=== PATIENT | female | born 1985 | race Caucasian/White ===

== ENCOUNTER → 2017-11-03 08:55 | Outpatient (CLI) | payer BC, SELFPAY ==
--- NOTE | 2017-11-03 09:02 | CT_ITS ---
CT abdomen pelvis wo con CLINICAL INDICATION: Left flank pain ITS.REASON: LT RENAL COLIC ORDERING PHYSICIAN: Prem Lopez MD PATIENT AGE: 32 years COMPARISON: 05/16/2013 TECHNIQUE: Axial images obtained with sagittal and coronal reformats. All CT scans at the facility use one or more dose reduction, viz: automated exposure control; ma/kV adjustment per patient size (including targeted exams where dose is matched to indication; i.e. head); or iterative reconstruction technique. PROCEDURE: Oral Contrast: None IV Contrast: None . FINDINGS: The lung bases are clear. Mild diffuse fatty liver. Prior cholecystectomy. The the spleen, adrenal glands, and pancreas are unremarkable. No ductal dilatation. No obstructing renal or ureteral calculi. No obvious renal mass or perinephric fluid collection. No evidence of appendicitis, diverticulitis, or intestinal obstruction or free air No pelvic mass abnormal fluid collection or focal inflammatory change. No acute bony anomalies. IMPRESSION: No acute abdominal or pelvic findings. No renal or ureteral calculi evident.
== END ==
PROVIDERS: Family Provider Family Medicine; PCP Family Medicine; Visit Provider Family Medicine
DX: N23 Unspecified renal colic (principal)
CPT/HCPCS: 74176

== ENCOUNTER → 2018-06-22 16:15 | Outpatient (CLI) | payer BC, SELFPAY ==
--- NOTE | 2018-06-22 16:25 | MR_ITS ---
MR head/brain wo con HISTORY: Chronic posttraumatic headache with blurred vision ITS.REASON: CHRONIC POST TRAUMATIC HEADACHE ORDERING PHYSICIAN: Prem Lopez MD PATIENT AGE: 32 years Comparison: none TECHNIQUE: Standard multiplanar multiecho sequences are performed without contrast. FINDINGS: No midline shift, mass effect, intracranial hemorrhage, or hydrocephalus is evident. There are encephalomalacia changes in the right frontal lobe. Postsurgical changes are present within the right frontal bone is well. No acute infarction. The cerebellopontine angles, cerebellum, and brainstem are unremarkable. The pituitary, optic chiasm, corpus callosum, and craniocervical junction have an unremarkable appearance. There is normal mcghee-white matter differentiation. IMPRESSION: 1. Encephalomalacia change in the right frontal lobe. 2. Otherwise negative MRI of the brain without contrast with no acute finding
== END ==
PROVIDERS: PCP Family Medicine; Visit Provider Family Medicine
DX: G44.329 Chronic post-traumatic headache, not intractable (principal); G93.89 Other specified disorders of brain
CPT/HCPCS: 70551

== ENCOUNTER → 2021-02-14 16:56 | Outpatient (CLI) | payer BC, SELFPAY ==
[2021-02-14 16:59] LABS: MANUAL DIFFERENTIAL MANUAL DIFFERENTIAL (MANUAL DIFF)
[2021-02-14 18:13] LABS: Basophils # 0.1 K/mm3 (0-0.2); Basophils % 0.6 % (0.1-2.0); Eosinophils # 0.3 K/mm3 (0.0-0.4); Eosinophils % 2.5 % (0.1-12.0); Hematocrit 39.5 % (37.0-47.0); Hemoglobin 13.7 g/dL (12.2-16.2); Lymphocytes # 3.9 K/mm3 (0.7-4.5); Lymphocytes % 29.8 % (10-50); Mean Corpuscular HGB Conc 34.6 g/dL (31.8-35.4); Mean Corpuscular Hemoglobin 29.9 pg (27.0-31.2); Mean Corpuscular Volume 86.4 fl (81-99); Mean Platelet Volume 8.2 fl (7.4-10.4); Monocytes # 0.9 K/mm3 (0.1-1.0); Monocytes % 6.6 % (1.7-9.3); Neutrophils # 7.8 K/mm3 (1.8-7.8); Neutrophils % 60.5 % (37.0-80.0); Platelet Count 373 K/mm3 (142-424); Red Blood Count 4.57 M/mm3 (4.20-5.40); Red Cell Distribution Width 12.9 % (11.5-17.5); White Blood Count 12.9 K/mm3 (4.8-10.8)
[2021-02-14 19:26] LABS: Eosinophils % 2 % (0-3); Lymphocytes % 31 % (10-50); Monocytes % 2 % (2-9); Neutrophils % 65 % (42-76); Nucleated Red Blood Cells 1; Platelet Estimate Normal; Total Cells Counted 100
[2021-02-14 19:34] LABS: Anion Gap 17.2 mEq/L (5-15); Blood Urea Nitrogen 10 mg/dl (7-17); Calcium 9.6 mg/dl (8.4-10.2); Carbon Dioxide 24 mmol/L (22.0-30.0); Chloride 102 mmol/L (98-107); Estimated Glomerular Filt Rate 115 ml/min (>60); GFR (African American) 139 ML/MIN (>60); Glucose 82 mg/dl (74-100); Potassium 4.2 mmoL/L (3.5-5.1); Sodium 139 mmol/L (136-145)
[2021-02-14 19:36] LABS: HCG Qualitative, Serum Negative (Negative)
== END ==
PROVIDERS: Visit Provider Nurse Practitioner Obstetrics & Gynecology
DX: Z01.812 Encounter for preprocedural laboratory examination (principal); R10.2 Pelvic and perineal pain; N94.10 Unspecified dyspareunia; N85.2 Hypertrophy of uterus; Z11.52 Encounter for screening for COVID-19
CPT/HCPCS: 36415; 80048; 84703; 85007; 85014; 85018; 85048; 85049; U0003

== ENCOUNTER 2021-02-17 12:41 | Observation (INO) | payer BC, SELFPAY ==
[2021-02-12 13:27] VITALS: BMI 33.3
[2021-02-17] VITALS (21 sets, daily range): BP systolic 101–161; BP diastolic 61–85; PULSE 86–102; RESP 12–18; TEMP 36.6–43; O2SAT 93–99
--- NOTE | 2021-02-17 07:59 | P.PN_ITS ---
[facility] Anesthesia Checklist - Patient Identification Patient Identification: Arm Band - Structural Data Admitted From: Home Planned Operative Procedure/s: LAVH, Bilateral Salpingectomy Consent for Planned Operative Procedure(s) Verified: Yes Verified Documents: Surgical Consent, History and Physical - NPO Status Verified Time NPO: 00:00 - Additional verifications Anesthesia Reactions: No Hx Blood Transfusions: No Blood Transfusion Reaction: No - Airway Assessment C-Spine Mobility Assessed: Yes (mp2) TMJ Mobility Assessed: Yes Dentition: Good Dentition - Neurological Assessment Level of Consciousness: Awake, Alert - Anesthesia Plan Anesthesia Risk discussed: Yes Anesthesia Plan: Verified ASA Class: II Anesthesia Type: General [facility] History I have reviewed the patient's past medical history: Yes Medical History: Reports:: Anxiety, Depression, Hypertension, Kidney Stones, Migraine Denies:: Cancer, Diabetes Mellitus Type 1, Diabetes Mellitus Type 2, Internal Pacemaker, MRSA, Seizures *Have you ever received a pneumonia vaccine?: No *Have you received a flu vaccine this season?: No Other Medical History: Denies: Blood Transfusion Reaction Anesthesia experience/problems:: nac Laterality Cases: Bilateral: Other Other Surgeries: Yes: , Other. No: Pacemaker Amputation: No Fractures: No - *Social History Smoking Status: Never smoker Alcohol Intake: never Alcohol Intake Frequency:: other Substance Use Type: denies use *Occupational Status:: employed Housing: house Household Members: family *Travel in the last 8 weeks: None - Psychiatric History Pschychiatric History:: Reports:: Anxiety, Depression Family Hx:: No significant family history
--- NOTE | 2021-02-17 11:23 | HMH.OPNOTE ---
Date of procedure: 02/17/21 Pre-op Diagnosis:: Pelvic pain, dyspareunia, menorrhagia, dysmenorrhea Post-op Diagnosis:: Pelvic pain, dysmenorrhea, dyspareunia, menorrhagia, pelvic adhesions, endometriosis Procedure performed:: Laparoscopically assisted vaginal hysterectomy, bilateral salpingectomy, lysis of adhesions Surgeon:: Doron Chandler MD Need[employer] Supervisor(s):: Kerrie Gaming CAT OPERATOR:: Douglas Rolon Anesthesia: GETA Estimated blood loss (mL): 600 Clinical Note:: She is a 35-year-old 2 para 2 lady who complains of severe pain with her periods as well as pain with intercourse. She had an enlarged uterus and on examination her uterus was exquisitely tender. She has had a previous ablation. She had heavy periods still. After having discussed the risks and benefits we elected perform a laparoscopic-assisted vaginal hysterectomy and bilateral salpingectomy. Operative findings:: She had an anteverted bulky uterus. The anterior aspect of the uterus was adherent to the anterior abdominal wall with thick adhesions. Ovaries and tubes appeared normal. The appendix had some adhesions but was otherwise normal. There were a couple of small spots of endometriosis. They were about a millimeter in size. The upper abdomen appeared normal. Operative note:: She was taken to the operating room where general anesthesia was found be adequate. She was prepped and draped in normal sterile fashion in the semilithotomy position. A weighted speculum was placed in the vagina and the anterior lip of the cervix was grasped with a tenaculum. An acorn uterine manipulator was then placed within the cervical os. I then changed gloves. I injected 10 cc of 0.5% ropivacaine around the umbilicus and made a small incision within the umbilicus. I inserted a Veress needle into the abdominal cavity. The abdominal cavity was then insufflated with carbon dioxide gas to a pressure of 20 mmHg. I then inserted an 11 mm trocar under direct vision. I identified the inferior epigastric arteries on the left side, went lateral to these and injected through and through. I then made a small incision and inserted an 11 mm trocar under direct vision. A similar 11 mm trocar was placed on the right side. She had extensive adhesions of the uterus to the anterior abdominal wall and I took these down with harmonic scalpel. I then injected through and through and placed a small 5 mm trocar in the suprapubic area. This was done under direct vision. The left round ligament was then grasped and cut through with harmonic scalpel. This was followed by opening up the peritoneum anteriorly to the midline. I then grasped the tube on the left side and cut through this. This is followed by cutting through the left utero-ovarian ligament. I used Harmonic scalpel on the coagulation mode. I then took down the posterior aspect of the broad ligament to the level of the uterosacral ligament. I then skeletonized the uterine arteries on the left side and placed hemoclips on these. Using the harmonic scalpel on coagulation mode adjacent to the cervix I then took down these uterine arteries. I then further freed up the bladder anteriorly and laterally on the left side. I then turned my attention to the right side where I grasped the right round ligament. The right tube was adherent to the right pelvic sidewall and using harmonic scalpel I was able to free this up. I then cut through the right round ligament. I then took down the anterior peritoneum to the midline joining up with the other side. I further dissected the bladder off. The posterior aspect of the right broad ligament was then taken down with harmonic scalpel. I skeletonized the uterine arteries on the right side. I applied hemoclips to the uterine arteries and staying adjacent to the cervix on the right side I took down the uterine arteries with harmonic scalpel on coagulation mode. I further freed up the bladder. We then assured
--- NOTE | 2021-02-17 11:32 | HMH.HP ---
*Admission Date: 02/17/21 *Chief complaint: Dysmenorrhea, dyspareunia, menorrhagia, *History of present illness: She is a 35-year-old 2 para 2 lady who is had a previous ablation for bleeding problems she continued to have bleeding as well as painful periods and dyspareunia. She had 2 previous sections. She was exquisitely tender when I examined her in my office. After having discussed the risks and benefits we elected perform a laparoscopically assisted vaginal hysterectomy and bilateral salpingectomy. [facility] History I have reviewed the patient's past medical history: Yes Medical History: Reports:: Anxiety, Depression, Hypertension, Kidney Stones, Migraine Denies:: Cancer, Diabetes Mellitus Type 1, Diabetes Mellitus Type 2, Internal Pacemaker, MRSA, Seizures *Have you ever received a pneumonia vaccine?: No *Have you received a flu vaccine this season?: No Other Medical History: Denies: Blood Transfusion Reaction Anesthesia experience/problems:: nac Laterality Cases: Bilateral: Other Other Surgeries: Yes: No Previous Surgery, , Other. No: Pacemaker Amputation: No Fractures: No - *Social History Smoking Status: Never smoker Alcohol Intake: never Alcohol Intake Frequency:: other Substance Use Type: denies use *Occupational Status:: employed Housing: house Household Members: family *Travel in the last 8 weeks: None - Psychiatric History Pschychiatric History:: Reports:: Anxiety, Depression Family Hx:: No significant family history Review of Systems - Review of Systems Review of systems:: pertinent systems reviewed and negative unless documented below Meds Home Medications Medication Instructions Recorded Confirmed Type nadolol 80 mg tablet 80 mg PO QAM tab 08/05/17 02/17/21 History onabotulinumtoxinA 200 unit 200 unit IM ONCE 08/05/17 02/17/21 History solution for injection rizatriptan 10 mg disintegrating 10 mg PO ONCE 08/05/17 02/17/21 History tablet famotidine 20 mg tablet 20 mg PO DAILY tab 08/28/20 02/17/21 History fluoxetine 40 mg capsule 40 mg PO DAILY 08/28/20 02/17/21 History gabapentin 600 mg tablet 600 mg PO DAILY tab 08/28/20 02/17/21 History Dextroamphetamine/Amphetamine 10 mg PO DAILY 02/12/21 02/17/21 History [Adderall 10 mg Tablet] Gabapentin 600 mg PO DAILY 02/12/21 02/17/21 History Allergies Allergy/AdvReac Type Severity Reaction Status Date / Time cefaclor Allergy Intermediate I-HIVES Verified 02/17/21 07:33 Exam Vital signs and Labs for Last 24 Hours: Temp Pulse Resp BP Pulse Ox 98.5 F 88 18 126/77 96 02/17/21 07:35 02/17/21 07:35 02/17/21 07:35 02/17/21 07:35 02/17/21 07:35 - Constitutional no acute distress - *Routine HEENT Exam Head: Present: normocephalic Eye: Present: EOMI, PERRL ENT: Present: mucous membranes moist - *Routine Neck Exam Present: supple, full ROM - *Routine Respiratory Exam Absent: accessory muscle use (good air entry bilaterally), wheezes, crackles - *Routine Cardiovascular Exam Present: RRR. Absent: murmur - *Routine Abdominal Exam Present: soft, normoactive bowel sounds. Absent: tenderness, rebound, guarding, mass - *Routine Rectal Exam Rectal:: deferred - *Routine Genitalia Exam Genitalia:: deferred - *Routine Extremities Exam Present: full ROM. Absent: cyanosis, edema, calf tenderness - *Routine Skin Exam Present: intact (good color) - *Routine Neurological Exam Present: alert, oriented X3 - Routine Psychiatric Exam Present: normal affect - Detailed Rectal Exam Patient deferred: visual exam, digital exam - Detailed Exam Patient deferred: external exam, groin exam, perineal exam Assessment and Plan (1) Dysmenorrhea Status: Acute Category: Medical Code(s): N94.6 - Dysmenorrhea, unspecified (2) Dyspareunia Status: Acute Category: Medical (3) Pelvic peritoneal adhesions, female Status: Acute Category: Medical Code(s): N73.6 - Female pelvic pe
--- NOTE | 2021-02-17 11:38 | P.PN_ITS ---
[facility] Anesthesia Record Part I Intake, IV Amount: 2,000 Estimated blood loss (mL): 600 Urine output (mL): 30 Blood Pressure: 137/81 SaO2: 93 Pulse Rate: 93 Respiratory Rate: 12 Temperature: 98.4 F Patient is:: Awake, Stable Stable to PACU at:: 11:35
[2021-02-17 13:50] LABS: Microscopic,Cath URINE MICROSCOPIC (MICROSCOPIC)
[2021-02-17 13:58] LABS: Appearance,Urine/Cath SL CLOUDY (Clear); Bilirubin,Cath Negative (Negative); Blood, Urine/Cath TRACE-I (Negative); Color,Urine/Cath YELLOW (Yellow); Glucose,Urine/Cath (UA) Negative (Negative); Ketones,Urine/Cath Negative (Negative); Leukocyte Esterase,Cath Negative (Negative); Nitrate,Cath Negative (Negative); Protein,Urine/Cath 1+ (Negative); Specific Gravity, Urine/Cath >= 1.030 (1.005-1.030)
--- NOTE | 2021-02-17 16:40 | PC.NURSE ---
PT HAS RESTED INTERMITTENTLY THIS SHIFT, NO ACUTE CHANGES SINCE ADMISSION ASSESSMENT. PAIN WELL CONTROLLED AT THIS TIME. IV PATENT, LUNGS CLEAR. LAP SITES X 4 C/D/I. ABD SOFT AND MODERATELY TENDER. BOWEL SOUNDS HYPOACTIVE.CLEAR YELLOW URINE NOTED FROM NEUMANN. TOLERATING REGULAR DIET. SCUDDS ON BILATERALLY. CALL LIGHT WITHIN REACH. WILL CONTINUE TO MONITOR
[2021-02-17 17:05] LABS: Hematocrit 35.8 % (37.0-47.0); Hemoglobin 11.8 g/dL (12.2-16.2)
--- NOTE | 2021-02-17 21:28 | PC.NURSE ---
late entry: Assisted patient to bathroom and removed taylor catheter. Pt tolerated well and was instructed to use call light when ready to ambulate back to bed. I responded to pt call light and found pt sitting on the toilet and c/o dizziness and feeling like blacking out . Pt appeared pallor and was diaphoretic. Called for assistance and pt was assisted back to bed with RNx2. BP was 111/58 hr 90 99%o2. Glucose 118. Pt recovered quickly and asked for something to eat and drink. Will continue to monitor.
[2021-02-18] VITALS (8 sets, daily range): BP systolic 110–134; BP diastolic 57–79; PULSE 85–93; RESP 16–18; TEMP 36.6–37.2; O2SAT 94–99
--- NOTE | 2021-02-18 01:17 | PC.NURSE ---
LATE ENTRY: 2044 INCENTIVE SPIROMETER GIVEN AND EXPLAINED TO PT. PT V/U. 1200 GOAL SET AND OBTAINED.
--- NOTE | 2021-02-18 04:02 | PC.NURSE ---
PT SLEEPING COMFORTABLY. NO DISTRESS NOTED. PT HAS BEEN AWAKE MAJORITY OF THE SHIFT WITH C/O GAS AND VAGINAL PRESSURE. MEDICATED PER EMAR. LAP SITES ARE CDI X4. VSS. PT HAS BEEN AMBULATING IN ROOM INDEPENDENTLY THIS SHIFT. WILL CONTINUE TO MONITOR.
[2021-02-18 04:28] LABS: POC Glucose,Bedside 118 (70-110)
[2021-02-18 06:15] LABS: Basophils # 0.1 K/mm3 (0-0.2); Basophils % 0.5 % (0.1-2.0); Eosinophils # 0.1 K/mm3 (0.0-0.4); Eosinophils % 0.6 % (0.1-12.0); Hematocrit 33.6 % (37.0-47.0); Hemoglobin 11.2 g/dL (12.2-16.2); Lymphocytes # 1.7 K/mm3 (0.7-4.5); Lymphocytes % 9.5 % (10-50); Mean Corpuscular HGB Conc 33.2 g/dL (31.8-35.4); Mean Corpuscular Hemoglobin 30.3 pg (27.0-31.2); Mean Corpuscular Volume 91.3 fl (81-99); Monocytes # 1.2 K/mm3 (0.1-1.0); Monocytes % 6.4 % (1.7-9.3); Neutrophils % 82.9 % (37.0-80.0); Platelet Count 316 K/mm3 (142-424); Red Blood Count 3.68 M/mm3 (4.20-5.40); Red Cell Distribution Width 13.3 % (11.5-17.5); White Blood Count 18.1 K/mm3 (4.8-10.8)
[2021-02-18 06:18] LABS: MANUAL DIFFERENTIAL MANUAL DIFFERENTIAL (MANUAL DIFF)
[2021-02-18 06:26] LABS: Chloride 105 mmol/L (98-107)
[2021-02-18 06:27] LABS: Potassium 4.2 mmoL/L (3.5-5.1); Sodium 137 mmol/L (136-145)
[2021-02-18 06:29] LABS: Blood Urea Nitrogen 7 mg/dl (7-17); Creatinine Clearance Estimated 229 mL/min (50-200); Estimated Glomerular Filt Rate 142 ml/min (>60); GFR (African American) 172 ML/MIN (>60)
[2021-02-18 06:30] LABS: Anion Gap 10.2 mEq/L (5-15); Calcium 8.7 mg/dl (8.4-10.2); Carbon Dioxide 26 mmol/L (22.0-30.0); Glucose 120 mg/dl (74-100)
--- NOTE | 2021-02-18 07:14 | PC.NURSE ---
REPORT GIVEN TO Aleksandra ADAMSON RN
--- NOTE | 2021-02-18 07:51 | HMH.ANESII ---
[facility] Anesthesia Record Part II Discharge Time: 12:05 Destination: Obstetric PACU nurse assessment reviewed?: Yes Patient Condition:: Good Anesthesia Complications:: None Swallowing reflex intact?: Yes Cyanosis?: No Blood Pressure: 134/79 Pulse Rate: 93 Temperature: 98.4 F Mental Status: Alert & Oriented Pain level:: 0 Nausea and/or vomitting:: None Intake, IV Amount: 0
[2021-02-18 08:20] LABS: Eosinophils % 1 % (0-3); Lymphocytes % 10 % (10-50); Monocytes % 6 % (2-9); Neutrophils % 83 % (42-76); Total Cells Counted 100
[2021-02-18 08:21] LABS: Hypochromasia 1+; Platelet Estimate Normal
--- NOTE | 2021-02-18 10:20 | P.CONPHA_ITS ---
[facility] Pharmacy VTE Monitoring - Patient Demographics Admission date: 02/17/21 Report Date: 02/18/21 Time: 10:20 Allergies/Adverse Reactions: Patient Allergies cefaclor Allergy (Intermediate, Verified 02/17/21 07:33) I-HIVES Height: 1.65 m Weight: 90.718 kg Patient Problems: Current Active Problems Dysmenorrhea (Acute) Dyspareunia (Acute) Pelvic peritoneal adhesions, female (Acute) Endometriosis determined by laparoscopy (Acute) Abnormal bleeding in menstrual cycle (Acute) - VTE Risk Labs: VTE Related Lab Results Hgb 11.2 g/dL (12.2-16.2) L 02/18/21 05:30 Hct 33.6 % (37.0-47.0) L 02/18/21 05:30 Plt Count 316 K/mm3 (142-424) 02/18/21 05:30 BUN 7 mg/dl (7-17) 02/18/21 05:30 Creatinine 0.50 mg/dl (0.52-1.04) L 02/18/21 05:30 Estimated Creat Clear 229 mL/min (50-200) 02/18/21 05:30 VTE Score: 2 VTE Risk Level: Very Low Risk - Prophylaxis VTE Prophylaxis Ordered?: Yes Types of VTE Prophylaxis: IPCS Thigh High Location of Applied Device: Bilateral Lower Extremeties
--- NOTE | 2021-02-18 10:23 | PC.NURSE ---
Pt currently asleep at this time.
--- NOTE | 2021-02-18 10:36 | INFXCTL.NOTE ---
Dr. Chandler notified of pt still c/o itching and Benadryl not really helping. Phone order received for Vistaril 25mg Po q4hr PRN itching and pain medication changed to Percocet 10/325 PO q4 PRN pain instead of Dilaudid. R/V.
--- NOTE | 2021-02-18 11:21 | PC.NURSE ---
Pt now medicated with Vistaril 25mg po for itching as well as Percocet 10/325 for pain per resquest. Rates pain at 7/10 on pain scale. Toradol 30mg IV (scheduled) also given.
--- NOTE | 2021-02-18 11:32 | HMH.PHAINT ---
MEDICATION RECONCILIATION COMPLETE USING EXTERNAL PHARMACY FILL HISTORY AND LIST FROM MOST RECENT MD OFFICE VISIT.
--- NOTE | 2021-02-18 13:28 | PC.NURSE ---
notified of pt stating that she is feeling a lot better now and well enough to go home. Verbalizes understanding and states that he will be over here to see her in a little bit.
--- NOTE | 2021-02-18 14:00 | PC.NURSE ---
IV saline lock discontinued with catheter intact. 2x2 and gauze dressing applied to site. Tolerated well.
--- NOTE | 2021-02-18 14:02 | HMH.DCSUM ---
General - General Admission date:: 02/17/21 Discharge date: 02/18/21 HPI HPI: She is a 35-year-old 2 para 2 lady who is had a previous ablation for bleeding problems she continued to have bleeding as well as painful periods and dyspareunia. She had 2 previous sections. She was exquisitely tender when I examined her in my office. After having discussed the risks and benefits we elected perform a laparoscopically assisted vaginal hysterectomy and bilateral salpingectomy. Hospital Course Hospital Course: In 02/17/2021 she underwent a laparoscopic-assisted vaginal hysterectomy and bilateral salpingectomy. She also had lysis of extensive adhesions. The uterus was adherent to the anterior abdominal wall. This was likely as result of her previous section. She has done well postoperatively and has remained afebrile without her hospitalization. She is eating and drinking and ambulating. Her pain is reasonably well controlled. She will be discharged home today to follow-up with me in approximately 2 weeks time. She will continue with her home medications. She was given a prescription for Percocet 5/325 number 30 tablets, she was given a prescription for Zofran 4 mg number 30 tablets. She was given a prescription for Vistaril 25 mg number 60 tablets. She was given the usual instructions with respect to limiting her activity, driving and sexual activity. Her condition on discharge is stable and improved. Objective Vital signs: Temp Pulse Resp BP Pulse Ox 98.9 F 85 16 118/57 L 94 L 02/18/21 08:00 02/18/21 08:00 02/18/21 08:00 02/18/21 08:00 02/18/21 08:25 no acute distress - *Routine HEENT Exam Head: Present: normocephalic Eye: Present: EOMI, PERRL ENT: Present: mucous membranes moist - *Routine Neck Exam Present: supple - *Routine Respiratory Exam Present: CTA bilaterally - *Routine Cardiovascular Exam Present: RRR - *Routine Abdominal Exam Present: soft, normoactive bowel sounds. Absent: tenderness Results Labs on day of discharge: Labs from last 24 hours 02/18/21 02/18/21 02/17/21 05:30 05:30 20:59 WBC 18.1 H RBC 3.68 L Hgb 11.2 L Hct 33.6 L MCV 91.3 MCH 30.3 MCHC 33.2 RDW 13.3 Plt Count 316 MPV 8.0 Neut % (Auto) 82.9 H Lymph % (Auto) 9.5 L O'Brien % (Auto) 6.4 Eos % (Auto) 0.6 Baso % (Auto) 0.5 Neut # (Auto) 15.0 H Lymph # (Auto) 1.7 O'Brien # (Auto) 1.2 H Eos # (Auto) 0.1 Baso # (Auto) 0.1 Total Counted 100 Neutrophils % (Manual) 83 H Lymphocytes % (Manual) 10 Monocytes % (Manual) 6 Eosinophils % (Manual) 1 Platelet Estimate Normal Hypochromasia 1+ Sodium 137 Potassium 4.2 Chloride 105 Carbon Dioxide 26 Anion Gap 10.2 BUN 7 Creatinine 0.50 L Estimated Creat Clear 229 Estimated GFR 142 Est GFR ( Amer) 172 Glucose 120 H POC Glucose 118 H Calcium 8.7 Urine RBC Urine WBC Ur Squamous Epith Cells Urine Bacteria 02/17/21 02/17/21 16:05 10:33 WBC RBC Hgb 11.8 L Hct 35.8 L MCV MCH MCHC RDW Plt Count MPV Neut % (Auto) Lymph % (Auto) O'Brien % (Auto) Eos % (Auto) Baso % (Auto) Neut # (Auto) Lymph # (Auto) O'Brien # (Auto) Eos # (Auto) Baso # (Auto) Total Counted Neutrophils % (Manual) Lymphocytes % (Manual) Monocytes % (Manual) Eosinophils % (Manual) Platelet Estimate Hypochromasia Sodium Potassium Chloride Carbon Dioxide Anion Gap BUN Creatinine Estimated Creat Clear Estimated GFR Est GFR ( Amer) Glucose POC Glucose Calcium Urine RBC None Urine WBC 3-5 Ur Squamous Epith Cells None Urine Bacteria None DS: Diagnosis - Discharge Diagnosis (1) Dysmenorrhea Status: Acute (2) Dyspareunia Status: Acute (3) Pelvic peritoneal adhesions, female Status: Acute (4) Endomet
--- NOTE | 2021-02-18 14:41 | PC.NURSE ---
Discharge instructions as well as f/u appointment given to pt. Verbalizes understanding. [facility] called and notified of need for Meds to Bed . Pt now awaiting arrival of her to take her home and prescriptions to be delivered.
--- NOTE | 2021-02-18 15:44 | PC.NURSE ---
Meds to Bed prescriptions delivered by [facility]
== END 2021-02-18 16:33 | disposition home or self-care (01) ==
LOC: OR 02-18 08:26 → OB 02-18 08:26
PROVIDERS: Admitting Provider Nurse Practitioner Obstetrics & Gynecology; PCP Family Medicine; Visit Provider Nurse Practitioner Obstetrics & Gynecology
PROC: 0UT9FZZ Resection of Uterus, Via Natural or Artificial Opening With Percutaneous Endoscopic Assistance (ICD-10-PCS; CPT 58552; principal; 2021-02-17 09:00)
DX: N94.6 Dysmenorrhea, unspecified (principal); R10.2 Pelvic and perineal pain; N94.10 Unspecified dyspareunia; N92.0 Excessive and frequent menstruation with regular cycle; N73.6 Female pelvic peritoneal adhesions (postinfective); N80.9 Endometriosis, unspecified
CPT/HCPCS: 58552; 58660; 36415; 80048; 81001; 82962; 85007; 85014; 85018; 85025; 96372; 96374; C9290; G0378; J1956; J2405

== ENCOUNTER → 2021-02-24 14:19 | Outpatient (CLI) | payer BC, SELFPAY ==
[2021-02-24 15:06] LABS: Basophils # 0.1 K/mm3 (0-0.2); Basophils % 0.5 % (0.1-2.0); Eosinophils # 0.9 K/mm3 (0.0-0.4); Eosinophils % 6.2 % (0.1-12.0); Hematocrit 36.5 % (37.0-47.0); Hemoglobin 11.7 g/dL (12.2-16.2); Lymphocytes # 2.2 K/mm3 (0.7-4.5); Lymphocytes % 14.6 % (10-50); Mean Corpuscular HGB Conc 32.2 g/dL (31.8-35.4); Mean Corpuscular Hemoglobin 30.4 pg (27.0-31.2); Mean Corpuscular Volume 94.3 fl (81-99); Mean Platelet Volume 8.8 fl (7.4-10.4); Monocytes # 0.7 K/mm3 (0.1-1.0); Monocytes % 4.4 % (1.7-9.3); Neutrophils # 11.1 K/mm3 (1.8-7.8); Neutrophils % 74.3 % (37.0-80.0); Platelet Count 489 K/mm3 (142-424); Red Blood Count 3.87 M/mm3 (4.20-5.40); Red Cell Distribution Width 13.9 % (11.5-17.5); White Blood Count 14.9 K/mm3 (4.8-10.8)
[2021-02-24 15:28] LABS: Chloride 107 mmol/L (98-107); Potassium 4.4 mmoL/L (3.5-5.1); Sodium 140 mmol/L (136-145)
[2021-02-24 15:30] LABS: Alanine Aminotransferase 30 U/L (12-78); Aspartate Amino Transferase 28 U/L (14-36); Blood Urea Nitrogen 6 mg/dl (7-17); Estimated Glomerular Filt Rate 115 ml/min (>60); GFR (African American) 139 ML/MIN (>60)
[2021-02-24 15:31] LABS: Albumin Level 3.8 g/dl (3.5-5.0); Albumin/Globulin Ratio 1.5 (1.1-1.8); Alkaline Phosphatase 85 U/L (38-126); Anion Gap 15.4 mEq/L (5-15); Bilirubin,Total 0.3 mg/dl (0.2-1.3); Calcium 9.2 mg/dl (8.4-10.2); Carbon Dioxide 22 mmol/L (22.0-30.0); Globulin 2.6 g/dL (1.3-3.2); Glucose 128 mg/dl (74-100); Total Protein,Serum 6.4 g/dl (6.3-8.2)
== END ==
PROVIDERS: Visit Provider Nurse Practitioner Obstetrics & Gynecology
DX: R50.9 Fever, unspecified (principal); Z11.52 Encounter for screening for COVID-19; R39.9 Unspecified symptoms and signs involving the genitourinary system; Z90.710 Acquired absence of both cervix and uterus
CPT/HCPCS: 36415; 80053; 85025; U0003

== ENCOUNTER → 2021-02-25 10:11 | Outpatient (CLI) | payer BC, SELFPAY ==
--- NOTE | 2021-02-25 12:02 | CT_ITS ---
PROCEDURE: CT ABDOMEN PELVIS WO/W CON CLINICAL INDICATION: post op pain and fever Recent hysterectomy COMPARISON: CT ABDPEO CT abdomen pelvis wo con from 11/03/2017 TECHNIQUE: IV Contrast: 75ML Isovue 370 Oral Contrast 450ml Redicat Axial images obtained with sagittal and coronal reformats. All CT scans at the facility use one or more dose reduction, viz: automated exposure control, ma/kV adjustment per patient size (including targeted exams where dose is matched to indication, i.e. head), or iterative reconstruction technique. FINDINGS: LOWER THORAX: Minimal thickening of the pericardium not significantly changed ABDOMEN & PELVIS: Fatty liver. Prior cholecystectomy. Mild hepatomegaly. No focal liver lesion. No biliary dilatation. The spleen and adrenal glands have an unremarkable appearance. No obvious pancreatic mass or peripancreatic fluid collection. No renal or ureteral calculi. No hydronephrosis. No ureteral dilatation. No evidence of appendicitis. No intestinal obstruction or free air. Status post hysterectomy. There is mild prominence of the vaginal cuff which may be due to postsurgical edema. There is also mild thickening of the sigmoid colon which could be due to mild colitis or local inflammatory changes from the recent surgery.. There is no evidence of abscess. Surgical clips are present in the central pelvic region and left adnexal area. Small amount fluid is present in the pelvis. No definite abscess. No acute bony findings. IMPRESSION: Postsurgical changes from recent hysterectomy with mild thickening of the sigmoid colon in the pelvic region, small amount of pelvic fluid, and mild prominence of the vaginal cuff. No abscess or free air. No hydronephrosis or ureteral dilatation. Dictated by: Alek Cronin MD 02/25/2021 13:22 Alek Cronin MD in [place] 02/25/2021 13:22
== END ==
PROVIDERS: PCP Family Medicine; Visit Provider Nurse Practitioner Obstetrics & Gynecology
DX: G89.18 Other acute postprocedural pain (principal); R10.84 Generalized abdominal pain; R10.9 Unspecified abdominal pain; R50.82 Postprocedural fever
CPT/HCPCS: 74178; Q9967

== ENCOUNTER → 2021-02-26 17:13 | Outpatient (CLI) | payer BC, SELFPAY | PROVIDERS: PCP Family Medicine; Visit Provider Physician Assistant | DX: Z20.822 Contact with and (suspected) exposure to COVID-19 (principal) | CPT/HCPCS: U0003 ==

== ENCOUNTER → 2021-05-07 16:04 | Outpatient (CLI) | payer BC, SELFPAY ==
[2021-05-07 18:03] LABS: Coronavirus 19 IgG Antibody Negative (Negative); Coronavirus 19 IgM Antibody Negative (Negative)
== END ==
PROVIDERS: Visit Provider Family Medicine
DX: Z01.84 Encounter for antibody response examination (principal)
CPT/HCPCS: 36415; 86328

== ENCOUNTER → 2023-02-26 12:07 | Outpatient (CLI) | payer OTHER, BC, SELFPAY ==
--- NOTE | 2023-02-26 12:15 | XR_ITS ---
FINAL REPORT CLINICAL HISTORY: ACUTE left sided pain FINDINGS: Left shoulder Three views were obtained. There is no acute fracture or dislocation. The joint spaces appear normal. No soft tissue abnormality is identified. IMPRESSION: No acute process. Reviewed, Interpreted and Dictated by Jung Malcolm MD Transcribed by Cookie Scanlon Authenticated and [facility]
--- NOTE | 2023-02-26 12:16 | XR_ITS ---
FINAL REPORT CLINICAL HISTORY: ACUTE left sided neck pain FINDINGS: CERVICAL SPINE Three views demonstrate no acute fracture. There is mild reversal of the cervical lordosis. The disc spaces are well preserved. There is no malalignment. IMPRESSION: No acute process. Reviewed, Interpreted and Dictated by Jung Malcolm MD Transcribed by Cookie Scanlon Authenticated and [facility]
== END ==
PROVIDERS: PCP Family Medicine; Visit Provider Physician Assistant
DX: M54.2 Cervicalgia (principal); M25.512 Pain in left shoulder
CPT/HCPCS: 72040; 73030

== ENCOUNTER → 2023-11-03 09:12 | Outpatient (CLI) | payer BC, SELFPAY | LOC: SL 11-04 09:14 | PROVIDERS: PCP Family Medicine; Visit Provider Family Medicine | DX: G47.33 Obstructive sleep apnea (adult) (pediatric) (principal) | CPT/HCPCS: G0399 ==

== ENCOUNTER 2025-01-10 12:23 | Outpatient (CLI) | payer BC, SELFPAY ==
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
--- OUTSIDE RECORDS SUMMARY | 2024-05-11 06:30 | XMS_ITS ---
Author Organization [facility] Address [address] [place] [id number] Care Team Providers Care Yarder Engineer Name Role Phone Jorge Luis Lopez Primary [...] throat swelled, chest tightness Drug Allergy Active REASON FOR VISIT checkup and refills Medications Medication SIG (Take, Route, Frequency, Duration) Notes Start Date End Date Status Medrol 4 MG as directed orally daily; Duration: 6 days 03/19/2023 Not-Taki ng Sulfamethoxazole-Trimetho prim 800-160 MG 1 tab(s) orally every 12 hours; Duration: 10 day(s) 04/28/2021 Not-Taking Metaxalone 800 MG 1 tablet Orally Thre e times a day, prn 02/17/2023 Not-Taking Nadolol 80 MG 1 tab(s) orally once a day Active Rizatriptan Benzoate 10 MG 1 tab(s) orally once a day Active ZyrTEC Allergy 10 MG 1 tab(s) orally onc e a day Active Ibuprofen 800 MG 1 tab(s) orally q8 h our prn 09/01/2017 Active FLUoxetine HCl 40 MG Take 1 capsule by m valerie once daily for 90 days; Duration: 90 Active Adderall XR 15 MG 1 cap(s) orally once a day (in the morning); Duration: 30 day(s) Active AutoPAP - as directed as direc marty as directed 12/1811/09/2023 Not-Taking clonazePAM 1 MG 1 tab(s) orally once a day as needed Active Gabapentin 600 MG 1 tab(s) orally 3 ti mes a day 05/11/2024 Active FLUoxetine HCl 40 MG 1 cap(s) orally onc e a day Active traMADol HCl 50 MG 1 tab(s) orally 2 ti mes a day as needed Active Vital Signs Blood pressure systolic 124 mm Hg 05/11/20 24 Blood pressure diastolic 78 mm Hg 024 Heart Rate 94 /min 05/11/2024 Height 66 in 05/11/2024 Weight 205 lbs 05/11/2024 BMI 33.08 kg/m2 05/11/2024 Encounters Encounter Location Date Provider Diagnosis [facility] [address] [facility] [address] [place], [place] [id number] 05/11/2024 Jorge Luis Lopez Chronic post-traumat ic headache, not intractable G44.329 ; Depression with anxiety F41.8 and Sleep apnea G47.30 Assessments Encounter Date Diagnosis (ICD Code) Assessment Notes Treatment Notes Treatment Clinical Notes Section Notes 05/11/2024 Chronic post-traumatic headache, not intractable (ICD-10 - G44.329) 05/11/2024 Depression with anxiety (ICD-10 - F41.8) 05/11/2024 Sleep apnea (ICD-10 - G47.30) Declines trying CPAP again. Plan Of Treatment Medication Medication Name Sig Start Date Stop Date Notes Nadolol 80 MG 1 tab(s) orally once a day Rizatriptan Benzoate 10 MG 1 tab(s) orally once a day Gabapentin 600 MG 1 tab(s) orally 3 times a day 05/11/2024 FLUoxetine HCl 40 MG 1 cap(s) orally once a day traMADol HCl 50 MG 1 tab(s) orally 2 ti mes a day as needed Treatment Notes Assessment Notes Sleep apnea Declines trying CPAP again. Next Appt Details Follow Up: 6 Months, Reason: Progress Notes * Edilma YAOhDOB:1985 (39 yo F)Acc No.[id number]:05/11/2024 Progress Notes Patient: Aggie FERNANDEZ Provider: Jorge Luis Lopez M.D. :1985 A ge:38 Y S ex:Female Date:05/11/2024 Address:[address] [place] [address], [id number] Subjective: * Chief Complaints: * 1 . Checkup and refills. * HPI: H PI: Patient is here today for a check up and refills. Pt sts that she has no new concerns or complaints at this time. N eurology: Note that her sleep study showed mild sleep apnea. She tried CPAP for a period of time but could not tolerate the mask and had problems with nosebleeds. * ROS: A LLERGY: no C ough. [...] tab(s) orally once a day , Taking traMADol HCl 50 MG Tablet 1 tab(s) orally 2 times a day as needed , Taking Gabapentin 600 MG Tablet 1 tab(s) orally 3 times a day , Taking FLUoxetine HCl 40 MG Capsule Take 1 capsule by mouth once daily for 90 days , Not-Taking AutoPAP - - as directed as directed as directed , Notes to Pharmacist: 12/18, Not-Taking Medrol 4 MG Tablet Therapy Pack [...] - Side Effects. Objective: * Vitals: W t:205, Temp:98.2, BP:124/78, HR:94, Nurse:JENNIFER, Ht: 66, BMI:33.08. * Examination: G eneral Examination: General Appearance: [...] 2 plus. ? Assessment: * Assessment: 1. C hronic post-traumatic headache, not intractable - G44.329 (Primary) 2 .?Depression with anxiety - F41.8 3 . S leep apnea - G47.30 Plan: * Treatment: 2. D epression with anxiety Refill FLUoxetine HCl Capsule, 40 MG, 1 cap(s), orally, once a day, 90, Refills 1. 3. S leep apnea Notes: Declines trying CPAP again. * Follow Up: 6 Months * Images: Billing Information: * Visit Code: 76398 Office Visit, Est Pt., Level 3. * Procedure Codes: * Electronic signature of Jorge Luis Lopez MD on 01/10/2025 at 12:27 PM EDT Sign off status: Pending * Provider: Jorge Luis Lopez M.D. Date: 07/11/2023 Generated for Tawnya rojas/Matthieu/Randellitting on: 0 01/10/2025 12:27 PM EDT History and Physical Notes * HPI (History of Present Illness) Category Sub-Category Detail Notes Category Not es HPI Patient is here today for a [facility] k up and refills. Pt sts that she has no new concerns or complaints at this time Examination Category Sub-Category Detail Notes Category Not [...]
--- OUTSIDE RECORDS SUMMARY | 2024-11-07 11:30 | XMS_ITS ---
[facility] Address [address] [place] [phone] Care Team Providers Care Still Cleaner Tube Name Role Phone Jorge Luis Lopez Primary [...] tightness Drug Allergy Active REASON FOR VISIT med check Medications Medication SIG (Take, Route, Frequency, Duration) Notes Start Date End Date Status AutoPAP - as directed as direc marty as directed 12/1811/09/2023 Not-Taking Nadolol 80 MG Take 1 tablet by carlos th once daily; Duration: 90 Active Sulfamethoxazole-Trimetho prim 800-160 MG 1 tab(s) orally every 12 hours; Duration: 10 day(s) 04/28/2021 Not-Taking Metaxalone 800 MG 1 tablet Orally Thre e times a day, prn 02/17/2023 Not-Taking Medrol 4 MG as directed orally daily; Duration: 6 days 03/19/2023 Not-Taki ng ZyrTEC Allergy 10 MG 1 tab(s) orally onc e a day Active Gabapentin 600 MG 1 tab(s) orally 3 ti mes a day Active Ibuprofen 800 MG 1 tab(s) orally q8 h our prn 09/01/2017 Active Adderall XR 15 MG 1 cap(s) orally once a day (in the morning); Duration: 30 day(s) Active FLUoxetine HCl 40 MG Take 1 capsule by m outh once daily for 90 days; Duration: 90 Active Nadolol 80 MG 1 tab(s) orally once a day Active Rizatriptan Benzoate 10 MG 1 tab(s) orally once a day Active clonazePAM 1 MG 1 tab(s) orally once a day as needed Active FLUoxetine HCl 40 MG 1 cap(s) orally onc e a day Active Problems Problem Type SNOMED Code ICD Code Onset Dates Problem Status W/U Status Risk Notes Problem Memory loss (62370795) Memory loss (R41.3) Active confirmed Problem Obese class I ([id number]) BMI 33.0-33.9,nano lt (Z68.33) Active confirmed Vital Signs Blood pressure systolic 120 mm Hg 11/08/19 25 Blood pressure diastolic 80 mm Hg 025 Heart Rate 84 /min 11/07/2024 Height 66 in 11/07/2024 Weight 206.2 lbs 11/07/2024 BMI 33.28 kg/m2 11/07/2024 Encounters Encounter Location Date Provider Diagnosis [facility] [address] [id number] 11/07/2024 Jorge Luis Lopez Chronic post-traumat ic headache, not intractable G44.329 ; Depression with anxiety F41.8 ; Sleep apnea G47.30 ; Memory loss R41.3 and BMI 33.0-33.9,adult Z68.33 Assessments Encounter Date Diagnosis (ICD Code) Assessment Notes Treatment Notes Treatment Clinical Notes Section Notes 11/07/2024 Chronic post-traumatic headache, not intractable (ICD-10 - G44.329) 11/07/2024 Depression with anxiety (ICD-10 - F41.8) 11/07/2024 Sleep apnea (ICD-10 - G47.30) Declines trying CPAP again. 11/07/2024 Memory loss (ICD-10 - R41.3) 11/07/2024 BMI 33.0-33.9,adult (ICD-10 - Z68.33) Plan Of Treatment Medication Medication Name Sig Start Date Stop Date Notes Gabapentin 600 MG 1 tab(s) orally 3 times a day Nadolol 80 MG 1 tab(s) orally once a day Rizatriptan Benzoate 10 MG 1 tab(s) orally once a day FLUoxetine HCl 40 MG 1 cap(s) orally once a day Treatment Notes Assessment Notes Sleep apnea Declines trying CPAP again. Pending Test Test Name Order Date H-TSH 11/07/2024 H-CBC 11/07/2024 H-CMP 11/07/2024 Next Appt Details Follow Up: 6 Months, Reason: Progress Notes * Edilma YAOhDOB:1985 (39 yo F)Acc No.[id number]:11/07/2024 Progress Notes Patient: Aggie FERNANDEZ Provider: Jorge Luis Lopez M.D. :1985 A ge:39 Y S ex:Female Date:11/07/2024 Address:[address] [place] [address] [id number] Subjective: * Chief Complaints: * 1 . Med check. * HPI: N eurology: She returns for scheduled follow-up and refill of maintenance medications related to her chronic headache syndrome. She had been following with Dr. Taylor in [place] and receiving Botox injections but Dr. Taylor has relocated her practice to [place] and Aggie has been delayed in getting reestablished with her. She has not had Botox injections for a few months and headaches have been worse. She is scheduled to see Dr. Taylor next week. C onstitutional: She complains of more fatigue and is not sure if it is related to depression or some deficiency. She feels like her memory is worse as she is more forgetful and has more problems with concentration. * ROS: D ERMATOLOGY: no R smitha. n o H rochelle. G ASTROENTEROLOGY: no N ausea. n o V omiting. n o D iarrhea.? U ROLOGY: no D ifficulty urinating. n [...] smoke exposure: No. * Medications: T aking Rizatriptan Benzoate 10 MG Tablet 1 tab(s) orally once a day , Taking clonazePAM 1 MG Tablet 1 tab(s) orally once a day as needed , Taking Adderall XR 15 MG Capsule Extended Release 24 Hour 1 cap(s) orally once a day (in the morning) , Taking Ibuprofen 800 MG Tablet 1 tab(s) orally q8 hour prn , Taking ZyrTEC Allergy 10 MG Tablet 1 tab(s) orally once a day , Taking FLUoxetine HCl 40 MG Capsule Take 1 capsule by mouth once daily for 90 days , Taking Nadolol 80 MG Tablet Take 1 tablet by mouth once daily , Taking Gabapentin 600 MG Tablet 1 tab(s) orally 3 times a day , Not-Taking AutoPAP - - as directed as directed as directed , Notes to Pharmacist: 12/18, Not-Taking Medrol 4 MG Tablet Therapy Pack as directed orally daily , Not-Taking Metaxalone 800 MG Tablet 1 tablet Orally Three times a day, prn , Not-Taking Sulfamethoxazole-Trimethoprim 800-160 MG Tablet 1 tab(s) orally every 12 hours , Discontinued traMADol HCl 50 MG Tablet 1 tab(s) orally 2 times a day as needed , Discontinued FLUoxetine HCl 40 MG Capsule 1 cap(s) orally once a day , Medication List reviewed and reconciled with the patient * Allergies: C efaclor: rash, Zomig: throat swelled, chest tightness, Treximet: itching, heavt chest, upset stomach, in a fog, Mucinex Fast-Max Cld Flu Thrt: rash, Lyrica: burning eyes - Side Effects, Amoxicillin: rash - Allergy, Topamax: stomach upset - Side Effects. Objective: * Vitals: W t: 206.2, Temp: 98.4, BP: 120/80, HR: 84, Nurse: MIGNON, Ht: 66, BMI:33.28. * Examination: G eneral Examination: General Appearance: [...] 3 . S leep apnea - G47.30 4 .?Memory loss - R41.3 5 . B ID 33.0-33.9,adult - Z68.33 Plan: * Treatment: 2. D epression with anxiety Refill FLUoxetine HCl Capsule, 40 MG, 1 cap(s), orally, once a day, 90, Refills 1. 3. S leep apnea Notes: Declines trying CPAP again. * Labs: * L ab: H-CMP L ab: H-CBC L ab: H-TSH * Procedure Codes: 3 074F SYST BP LT 130 MM HG, 3079F DIAST BP 80-89 MM HG * Follow Up: 6 Months * Images: Billing Information: * Visit Code: 99736 Office Visit, Est Pt., Level 4. * Procedure Codes: 3074F SYST BP LT 130 MM HG. 3079F DIAST BP 80-89 MM HG. * Electronic signature of Jorge Luis Lopez MD on 01/10/2025 at 12:27 PM EDT Sign off status: Pending * Provider: Jorge Luis Lopez M.D. Date: 0 11/07/2024 Generated for Tawnya rojas/Matthieu/Randellitting on: 0 01/10/2025 12:27 PM EDT History and Physical Notes * HPI (History of Present Illness) Category Sub-Category Detail Notes Category Not es Neurology She returns for scheduled follow-up and refill of maintenance medications related to her chronic headache syndrome. She had been following with Dr. Taylor in [place] and receiving Botox injections but Dr. Taylor has relocated her practice to [place] and Aggie has been delayed in getting reestablished with her. She has not had Botox injections for a few months and headaches have been worse. She is scheduled to see Dr. Taylor next week. Constitutional She complains of more fatigue and is not sure if it is related to depression or some deficiency. She feels like her memory is worse as she is more forgetful and has more problems with concentration. Examination Category Sub-Category Detail Notes Category Not [...]
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
[2025-01-10 12:59] LABS: Hematocrit 42.1 % (37.0-47.0); Hemoglobin 14.1 g/dL (12.2-16.2); Immature Granulocytes % 0.3 %; Mean Corpuscular HGB Conc 33.5 g/dL (31.8-35.4); Mean Corpuscular Hemoglobin 29.9 pg (27.0-31.2); Mean Corpuscular Volume 89.2 fl (81-99); Nucleated Red Blood Cells % 0 %; Platelet Count 346 K/mm3 (142-424); Red Blood Count 4.72 M/mm3 (4.20-5.40); Red Cell Distribution Width-SD 39.8 fL; White Blood Count 7.1 K/mm3 (4.8-10.8)
[2025-01-10 14:04] LABS: Chloride 103 mmol/L (98-107)
[2025-01-10 14:05] LABS: Albumin Level 4.5 g/dl (3.5-5.0); Potassium 4.3 mmoL/L (3.5-5.1); Sodium 137 mmol/L (136-145)
[2025-01-10 14:07] LABS: Blood Urea Nitrogen 8 mg/dl (7-17); Creatinine,Serum 0.60 mg/dl (0.52-1.04); Estimated Glomerular Filt Rate 112 ml/min (>60); GFR (African American) 136 ML/MIN (>60)
[2025-01-10 14:08] LABS: Alanine Aminotransferase 25 U/L (12-78); Albumin/Globulin Ratio 1.7 (1.1-1.8); Alkaline Phosphatase 57 U/L (38-126); Anion Gap 15.3 mEq/L (5-15); Aspartate Amino Transferase 28 U/L (14-36); Bilirubin,Total 0.3 mg/dl (0.2-1.3); Calcium 9.6 mg/dl (8.4-10.2); Carbon Dioxide 23 mmol/L (22.0-30.0); Globulin 2.7 g/dL (1.3-3.2); Glucose 109 mg/dl (74-100); Total Protein,Serum 7.2 g/dl (6.3-8.2)
[2025-01-10 16:20] LABS: Thyroid Stimulating Hormone 0.86 uIU/mL (0.465-4.68)
== END 2025-01-10 23:59 | disposition home or self-care (01) ==
LOC: LAB 12:24
PROVIDERS: PCP Family Medicine; Visit Provider Family Medicine
DX: F41.8 Other specified anxiety disorders (principal); R41.3 Other amnesia; G44.329 Chronic post-traumatic headache, not intractable
CPT/HCPCS: 36415; 80053; 84443; 85025